=== PATIENT | male | born 1970 | race Caucasian/White ===

== ENCOUNTER 2016-06-15 11:09 | Inpatient (IN) | payer OTHER ==
[2016-06-15 11:09] VITALS: BMI 28.6
[2016-06-15 12:30] LABS: RBC URINE < 1 /hpf (0-3); URINE BILIRUBIN NEGATIVE (NEGATIVE); URINE BLOOD NEGATIVE (NEGATIVE); URINE COLOR Yellow (YELLOW); URINE GLUCOSE (UA) NORMAL (Normal); URINE KETONE NEGATIVE (NEGATIVE); URINE LEUKOCYTE ESTERASE NEG Leu/uL (Negative); URINE PROTEIN NEGATIVE (NEGATIVE); WBC URINE 2 /hpf (0-5)
[2016-06-15] MEDS ORDERED: Iohexol 240 (50 ml) PO STA (12:42)
--- NOTE | 2016-06-15 12:59 | C.PDOC ---
History Of Present Illness 45 y/o male c/o right lower quadrant pain intermittently for 3-4 days. felt febrile with chills the other day. no nausea or vomiting. no diarrhea, last bm today. denies urinary symptoms. pain radiates to groin sometimes, denies any penile discharge, or pain or swelling in scrotum. Time Seen by Provider: 06/15/16 12:04 Chief Complaint (Nursing): Abdominal Pain History Per: Patient History/Exam Limitations: no limitations Onset/Duration Of Symptoms: Days (4) Current Symptoms Are (Timing): Still Present Pain Scale Rating Of: 6 Location Of Pain/Discomfort: RLQ Radiation Of Pain To:: Other (groin) Quality Of Discomfort: Sharp Associated Symptoms: Fever, Chills, Loss Of Appetite. denies: Nausea, Vomiting , Diarrhea Past Medical History Reviewed: Historical Data, Nursing Documentation, Vital Signs Vital Signs: Last Vital Signs Temp 98.8 F 06/15/16 17:02 Pulse 80 06/15/16 17:02 Resp 17 06/15/16 17:02 BP 98/63 L 06/15/16 17:02 Pulse Ox 97 06/15/16 17:27 - Medical History PMH: No Chronic Diseases Surgical History: No Surg Hx Family History: States: Unknown Family Hx - Social History Hx Tobacco Use: No Hx Alcohol Use: Yes Hx Substance Use: No - Immunization History Hx Tetanus Toxoid Vaccination: No Hx Influenza Vaccination: No Hx Pneumococcal Vaccination: No Physical Exam - Physical Exam Appears: Non-toxic, No Acute Distress Skin: Normal Color, Warm, Dry Head: Atraumatic, Normacephalic Chest: Symmetrical, No Deformity, No Tenderness Cardiovascular: Rhythm Regular, No Murmur Respiratory: Normal Breath Sounds, No Rales, No Rhonchi, No Stridor Gastrointestinal/Abdominal: Bowel Sounds, Soft, Tenderness (right upper and right hypogastric tenderness), No Distention, No Guarding, No Rebound Back: Normal Inspection, No CVA Tenderness Neurological/Psych: Oriented x3, Normal Speech, Normal Cognition, Normal Motor, Normal Sensation ED Course And Treatment - Laboratory Results Result Diagrams: 06/15/16 13:15 06/15/16 13:15 O2 Sat by Pulse Oximetry: 97 Medical Decision Making Medical Decision Makin45 y/o male with r/q pain- check ua, labs, ct scan abdomen Disposition Discussed With : Ben Velázquez Doctor Will See Patient In The: Hospital - Disposition Disposition: HOSPITALIZED Disposition Time: 17:28 Condition: STABLE - Clinical Impression Clinical Impression: Ruptured appendix, Abdominal abscess Decision To Admit - Pt Status Changed To: Hospital Disposition Of: Inpatient - Admit Certification Admit to Inpatient:: After my assessment, the patient will require hospitalization for at least two midnights. This is because of the severity of symptoms shown, intensity of services needed, and/or the medical risk in this patient being treated as an outpatient. - InPatient: Physician Admission Certification:: pt requires antibiotics and perhaps to or - . Bed Request Type: Regular Admitting Physician: Ben Velázquez Patient Diagnosis: Ruptured appendix, Abdominal abscess
[2016-06-15] MEDS ORDERED: Iohexol 240 (50 ml) ONE (13:04)
[2016-06-15 13:24] LABS: BASO # 0.1 K/uL (0.0-0.2); BASO % 0.8 % (0.0-2.0); EOS # 0.2 K/uL (0.0-0.7); EOS % 2.2 % (0.0-4.0); HEMATOCRIT 38.3 % (35.0-51.0); LYMPH # 1.8 K/uL (1.0-4.3); LYMPH % 20.3 % (20.0-40.0); MEAN CORPUSCULAR HEMOGLOBIN 31.7 pg (27.0-31.0); MEAN PLATELET VOLUME 10.4 fL (7.2-11.7); MONO # 0.8 K/uL (0.0-0.8); MONO % 9.7 % (0.0-10.0); RED CELL DISTRIBUTION WIDTH 12.7 % (11.5-14.5)
[2016-06-15 13:25] LABS: MEAN CELL VOLUME 95.9 fL (80.0-94.0); WHITE BLOOD COUNT 8.6 K/uL (4.8-10.8)
[2016-06-15 13:30] LABS: CHLORIDE 98 mmol/L (98-107)
[2016-06-15 13:31] LABS: POTASSIUM 4.2 mmol/L (3.6-5.2); SODIUM 141 mmol/L (132-148)
[2016-06-15 13:33] LABS: AST/SGOT 23 U/L (17-59); BILIRUBIN,TOTAL 0.7 mg/dL (0.2-1.3); CARBON DIOXIDE 32 mmol/L (22-30); GFR AFRICAN-AMERICAN > 60
[2016-06-15 13:34] LABS: ALKALINE PHOSPHATASE 63 U/L (38-126); ALT/SGPT 32 U/L (21-72); BLOOD UREA NITROGEN 13 mg/dL (9-20); CALCIUM 9.2 mg/dl (8.6-10.4); GLUCOSE,RANDOM 89 mg/dL (75-110)
[2016-06-15] MEDS ORDERED: Iodixanol 320 MG/ML 100 ML BOTTLE IV ONE (14:46)
--- NOTE | 2016-06-15 15:52 | CT ---
PROCEDURE: CT Abdomen and Pelvis with contrast HISTORY: abd pain COMPARISON: None. TECHNIQUE: Contrast dose: 100 mL Visipaque 320 Radiation dose: Total exam DLP = 642.72 mGy-cm. FINDINGS: LOWER THORAX: Unremarkable. LIVER: Unremarkable. No gross lesion or ductal dilatation. GALLBLADDER AND BILE DUCTS: Unremarkable. PANCREAS: Unremarkable. No gross lesion or ductal dilatation. SPLEEN: Unremarkable. ADRENALS: Unremarkable. No mass. KIDNEYS AND URETERS: Unremarkable. No hydronephrosis. No solid mass. There is cystic lesion exophytic from the midpole right kidney measures 1.4 centimeter VASCULATURE: Unremarkable. No aortic aneurysm. BOWEL: Slightly dilated small bowel loops. No evidence of bowel obstruction. Larger phlegmon seen at or adjacent to the cecum. There is suspicious for abscess formation adjacent to the cecum measures 4 centimeter. There is moderate thickening of the terminal ileum wall. APPENDIX: The appendix is not visualized. Large phlegmon and abscess formation seen at the right lower abdomen at and adjacent to the cecum. The possibility of rupture appendicitis is not totally excluded. PERITONEUM: Unremarkable. No free fluid. No free air. LYMPH NODES: Unremarkable. No enlarged lymph nodes. BLADDER: Unremarkable. REPRODUCTIVE: Unremarkable. BONES: No acute fracture. OTHER FINDINGS: None. IMPRESSION: Large phlegmon and 4 centimeter abscess formation seen at and/or adjacent to the cecum in the right lower abdomen. Findings may represent rupture appendicitis and abscess formation versus cecal perforation/ severe colitis. The possibility of underlying cecal mass is also not totally excluded. Adjacent moderate thickening of the terminal ileum wall likely reactive. Otherwise no evidence of acute pathology in the abdomen and pelvis.
[2016-06-15] MEDS ORDERED: Piperacillin/Tazobact 3.375 GM in Sodium Chloride 100 ML IVPB STA (16:22)
[2016-06-15] MEDS ORDERED: Lactated Ringer's 1,000 ML ONE (17:05)
[2016-06-15] MEDS ORDERED: Piperacillin/Tazobact 3.375 gm 100 ML IVPB ONE (17:05)
--- NOTE | 2016-06-15 17:10 | CP.PCM.HP ---
History of Present Illness - History of Present Illness History of Present Illness: Surgery: Dr. Velázquez CC: RLQ pain HPI: Patient is a 45 y/o male who presents complaining of RLQ abdominal pain that started on Saturday. Patient states the pain started midline around his belly button but progressively got worse and migrated to RLQ. He states on Saturday he developed fever and chills and on Saturday night the pain was so severe it woke him from sleep. He denies taking any medication for the pain just decided to wait for it to pass. The pain initially had improved on Saturday but starting he developed fever and the pain started to return. Patient does not know numerical value of fever. He states his appetite has been poor during his illness and also reports constipation. Bowel function returned on which was normal, no diarrhea or blood. He denies having pain like this in the past. He denies having colonoscopy or endoscopy in the past. PMH: denies PSH: scalp cyst excision Social: denies ETOH, tobacco, or durg use Present on Admission - Present on Admission Any Indicators Present on Admission: No Review of Systems - Review of Systems All systems: reviewed and no additional remarkable complaints except Review of Systems: unless stated in HPI - Constitutional Constitutional: Chills, Fever, Malaise. absent: Anorexia, Increased Appetite, Weight Loss - EENT Eyes: absent: Blurred Vision, Change in Vision - Cardiovascular Cardiovascular: absent: Chest Pain, Dyspnea - Respiratory Respiratory: absent: Cough, Wheezing - Gastrointestinal Gastrointestinal: Abdominal Pain, Constipation. absent: Cramping, Diarrhea, Heartburn, Hematochezia, Nausea, Vomiting - Genitourinary Genitourinary: absent: Hematuria, Pyuria - Musculoskeletal Musculoskeletal: absent: Arthralgias, Back Pain - Integumentary Integumentary: absent: Sores, Jaundice - Neurological Neurological: absent: Headaches, Syncope - Psychiatric Psychiatric: absent: Anxiety, Depression - Endocrine Endocrine: absent: Polydipsia, Polyphagia - Hematologic/Lymphatic Hematologic: absent: Easy Bleeding, Easy Bruising Past Patient History - Infectious Disease Hx of Infectious Diseases: None - Past Medical History & Family History Past Medical History?: No - Past Social History Smoking Status: Never Smoked - INTEGUMENTARY Hx Dermatological Problems: Yes (CYST OF SCALP) - PSYCHIATRIC Hx Substance Use: No - SURGICAL HISTORY Hx Surgeries: No - ANESTHESIA Hx Anesthesia: No Meds Allergies/Adverse Reactions: Allergies Allergy/AdvReac Type Severity Reaction Status Date / Time No Known Allergies Allergy Verified 06/15/16 11:14 Physical Exam - Constitutional Appears: Well, Non-toxic, No Acute Distress - Head Exam Head Exam: ATRAUMATIC, NORMOCEPHALIC - Eye Exam Eye Exam: EOMI, Normal appearance - ENT Exam ENT Exam: Mucous Membranes Moist - Respiratory Exam Respiratory Exam: NORMAL BREATHING PATTERN. absent: Respiratory Distress - Cardiovascular Exam Cardiovascular Exam: REGULAR RHYTHM. absent: Tachycardia - GI/Abdominal Exam GI & Abdominal Exam: Guarding (in the RLQ, voluntary ), Soft, Tenderness (Right lower quadrant ). absent: Distended, Hernia, Rebound - Rectal Exam Rectal Exam: Deferred - Extremities Exam Extremities exam: Positive for: normal inspection. Negative for: calf tenderness - Neurological Exam Neurological exam: Alert, CN II-XII Intact, Oriented x3 - Psychiatric Exam Psychiatric exam: Normal Affect, Normal Mood - Skin Skin Exam: Dry, Intact, Normal Color, Warm Results - Vital Signs Recent Vital Signs: Last Vital Signs Temp 98.8 F 06/15/16 17:02 Pulse 80 06/15/16 17:02 Resp 17 06/15/16 17:02 BP 98/63 L 06/15/16 17:02 Pulse Ox 98 06/15/16 17:02 - Labs Result Diagrams: 06/15/16 13:15 06/15/16 13:15 Assessment & Plan - Assessment and Plan (Free Text) Assessment: 45 y/o male w/ abdominal pain most likely 2/2 perforated appendicitis Plan: -Zosyn IV abx -IVFs -NPO overnight, pending clinical exam may start clears in am -Morphine for pain -Tylenol for fever -am labs -Pepcid/SCDs for prophylaxis -serial exams -conservative management at this time, if clinically patient does not improve or symptoms worsen, may consider surgical intervention -d/w Dr. Eber Alvarez PGY1 - Date & Time Date: 06/15/16 Time: 17:15
[2016-06-15] MEDS: Lactated Ringer's 1,000 ML IV SCH ×2 (17:15→20:56)
[2016-06-15 18:34] LABS: INR 1.3
[2016-06-16 00:27] VITALS: RESP 20
[2016-06-16] MEDS: Lactated Ringer's 1,000 ML IV SCH ×4 (01:00→14:50)
[2016-06-16 07:15] LABS: BASO # 0.1 K/uL (0.0-0.2); BASO % 0.9 % (0.0-2.0); EOS # 0.3 K/uL (0.0-0.7); EOS % 3.3 % (0.0-4.0); LYMPH # 2.2 K/uL (1.0-4.3); MEAN CELL VOLUME 96.2 fL (80.0-94.0); MEAN CORPUSCULAR HEMOGLOBIN 31.7 pg (27.0-31.0); MEAN CORPUSCULAR HGB CONC 32.9 g/dL (33.0-37.0); MEAN PLATELET VOLUME 10.6 fL (7.2-11.7); MONO # 0.8 K/uL (0.0-0.8); MONO % 9.1 % (0.0-10.0); RED CELL DISTRIBUTION WIDTH 12.8 % (11.5-14.5); WHITE BLOOD COUNT 8.7 K/uL (4.8-10.8)
[2016-06-16 07:37] LABS: CHLORIDE 97 mmol/L (98-107); POTASSIUM 4.3 mmol/L (3.6-5.2); SODIUM 141 mmol/L (132-148)
[2016-06-16 07:40] LABS: BLOOD UREA NITROGEN 10 mg/dL (9-20); CARBON DIOXIDE 33 mmol/L (22-30); GFR AFRICAN-AMERICAN > 60; GLUCOSE,RANDOM 90 mg/dL (75-110)
[2016-06-16 07:41] LABS: CALCIUM 8.5 mg/dl (8.6-10.4)
--- NOTE | 2016-06-16 10:28 | CP.PCM.PN ---
Subjective - Date & Time of Evaluation Date of Evaluation: 06/16/16 Time of Evaluation: 10:26 - Subjective Subjective: General Surgery - Dr. Velázquez Pt S&E. LUZ. Pt has mild RLQ discomfort, otherwise no complaints. He is ambulating the halls. Pt requesting to eat. He denies any n/V, F/C, SOB/Cp. Objective - Vital Signs/Intake and Output Vital Signs (last 24 hours): Temp Pulse Resp BP Pulse Ox 98.4 F 66 20 90/56 L 96 06/16/16 00:18 06/16/16 00:18 06/16/16 00:18 06/16/16 00:18 06/16/16 00:18 Intake and Output: 06/16/16 06/16/16 06:59 18:59 Intake Total 200 Balance 200 - Medications Medications: Current Medications Acetaminophen (Tylenol 650 Mg Supp) 650 mg NH Q6 PRN PRN Reason: Fever >100.4 F Famotidine (Pepcid) 20 mg IVP DAILY [facility] Last Admin: 06/16/16 10:16 Dose: 20 mg Lactated Ringer's (Lactated Ringer's) 1,000 mls @ 125 mls/hr IV .Q8H [facility] Last Admin: 06/16/16 05:41 Dose: 125 mls/hr Piperacillin Sod/Tazobactam Sod (Zosyn 2.25 Gm Iv Premix) 50 mls @ 100 mls/hr IVPB Q6H [facility] Morphine Sulfate (Morphine) 2 mg IVP Q4H PRN PRN Reason: Pain, moderate (4-7) Morphine Sulfate (Morphine) 4 mg IVP Q4H PRN PRN Reason: Pain, severe (8-10) Ondansetron HCl (Zofran Inj) 4 mg IVP Q6 PRN PRN Reason: Nausea/Vomiting - Labs Labs: 06/16/16 07:08 06/16/16 07:08 PT 14.9 SECONDS (9.7-12.2) H 06/15/16 18:19 INR 1.3 06/15/16 18:19 APTT 26 SECONDS (21-34) 06/15/16 18:19 - Constitutional Appears: Well, No Acute Distress - Head Exam Head Exam: ATRAUMATIC, NORMOCEPHALIC - Eye Exam Eye Exam: Normal appearance - Respiratory Exam Respiratory Exam: NORMAL BREATHING PATTERN. absent: Respiratory Distress - GI/Abdominal Exam GI & Abdominal Exam: Guarding, Soft, Tenderness (very localized ttp to the rlq) . absent: Distended, Firm, Rigid, Rebound - Neurological Exam Neurological Exam: Alert, Oriented x3 - Psychiatric Exam Psychiatric exam: Normal Affect, Normal Mood - Skin Skin Exam: Dry, Intact Assessment and Plan - Assessment and Plan (Free Text) Assessment: 45yo M w/ perforated appendicitis and phlegmon -Regular diet -Continue IV Abx - Zosyn -No plans for surgical intervention at this time -DW DR Eber Johns PGY2
[2016-06-16] MEDS: Piperacill/Tazo 2.25gm in Dex 50 ML IVPB SCH ×3 (11:00→22:00)
--- NOTE | 2016-06-16 13:02 | RAD ---
PROCEDURE: CHEST RADIOGRAPH, 1 VIEW HISTORY: preop COMPARISON: None available. FINDINGS: LUNGS: Clear. PLEURA: No pneumothorax or pleural fluid seen. CARDIOVASCULAR: Normal. OSSEOUS STRUCTURES: No significant abnormalities. VISUALIZED UPPER ABDOMEN: Normal. OTHER FINDINGS: None. IMPRESSION: No active disease.
[2016-06-17] MEDS: Lactated Ringer's 1,000 ML IV SCH
[2016-06-17 00:29] VITALS: BP 101/65; TEMP 98.3; O2SAT 97
[2016-06-17] MEDS: Piperacill/Tazo 2.25gm in Dex 50 ML IVPB SCH ×2 (04:00→09:47)
[2016-06-17 07:33] LABS: BASO # 0.1 K/uL (0.0-0.2); BASO % 0.9 % (0.0-2.0); EOS # 0.3 K/uL (0.0-0.7); EOS % 3.8 % (0.0-4.0); HEMATOCRIT 35.6 % (35.0-51.0); LYMPH # 1.8 K/uL (1.0-4.3); LYMPH % 26.4 % (20.0-40.0); MEAN CELL VOLUME 96.2 fL (80.0-94.0); MEAN CORPUSCULAR HEMOGLOBIN 31.8 pg (27.0-31.0); MEAN CORPUSCULAR HGB CONC 33.1 g/dL (33.0-37.0); MEAN PLATELET VOLUME 10.2 fL (7.2-11.7); MONO # 0.7 K/uL (0.0-0.8); MONO % 9.5 % (0.0-10.0); RED CELL DISTRIBUTION WIDTH 12.4 % (11.5-14.5); WHITE BLOOD COUNT 6.9 K/uL (4.8-10.8)
[2016-06-17 07:39] LABS: CHLORIDE 98 mmol/L (98-107); POTASSIUM 4.3 mmol/L (3.6-5.2); SODIUM 143 mmol/L (132-148)
[2016-06-17 07:42] LABS: BLOOD UREA NITROGEN 12 mg/dL (9-20); CARBON DIOXIDE 31 mmol/L (22-30); GFR AFRICAN-AMERICAN > 60; GLUCOSE,RANDOM 101 mg/dL (75-110)
[2016-06-17 07:43] LABS: CALCIUM 8.6 mg/dl (8.6-10.4)
[2016-06-17 08:23] VITALS: PULSE 76
--- NOTE | 2016-06-17 13:44 | CP.PCM.DIS ---
Provider - Provider Date of Admission: 06/15/16 16:50 Attending physician: Ben Velázquez MD Time Spent in preparation of Discharge (in minutes): 20 Diagnosis - Discharge Diagnosis (1) Ruptured appendix Status: Acute Hospital Course - Lab Results Lab Results: Most Recent Lab Values WBC 6.9 K/uL (4.8-10.8) 06/17/16 07:09 RBC 3.70 Mil/uL (4.40-5.90) L 06/17/16 07:09 Hgb 11.8 g/dL (12.0-18.0) L 06/17/16 07:09 Hct 35.6 % (35.0-51.0) 06/17/16 07:09 MCV 96.2 fL (80.0-94.0) H 06/17/16 07:09 MCH 31.8 pg (27.0-31.0) H 06/17/16 07:09 MCHC 33.1 g/dL (33.0-37.0) 06/17/16 07:09 RDW 12.4 % (11.5-14.5) 06/17/16 07:09 Plt Count 232 K/uL (130-400) 06/17/16 07:09 MPV 10.2 fL (7.2-11.7) 06/17/16 07:09 Neut % (Auto) 59.4 % (50.0-75.0) 06/17/16 07:09 Lymph % (Auto) 26.4 % (20.0-40.0) 06/17/16 07:09 [place] % (Auto) 9.5 % (0.0-10.0) 06/17/16 07:09 Eos % (Auto) 3.8 % (0.0-4.0) 06/17/16 07:09 Baso % (Auto) 0.9 % (0.0-2.0) 06/17/16 07:09 Neut # 4.1 K/uL (1.8-7.0) 06/17/16 07:09 Lymph # 1.8 K/uL (1.0-4.3) 06/17/16 07:09 [place] # 0.7 K/uL (0.0-0.8) 06/17/16 07:09 Eos # 0.3 K/uL (0.0-0.7) 06/17/16 07:09 Baso # 0.1 K/uL (0.0-0.2) 06/17/16 07:09 PT 14.9 SECONDS (9.7-12.2) H 06/15/16 18:19 INR 1.3 06/15/16 18:19 APTT 26 SECONDS (21-34) 06/15/16 18:19 Sodium 143 mmol/L (132-148) 06/17/16 07:09 Potassium 4.3 mmol/L (3.6-5.2) 06/17/16 07:09 Chloride 98 mmol/L (98-107) 06/17/16 07:09 Carbon Dioxide 31 mmol/L (22-30) H 06/17/16 07:09 Anion Gap 18 (10-20) 06/17/16 07:09 BUN 12 mg/dL (9-20) 06/17/16 07:09 Creatinine 1.0 MG/DL (0.8-1.5) 06/17/16 07:09 Est GFR ( Amer) > 60 06/17/16 07:09 Est GFR (Non-Af Amer) > 60 06/17/16 07:09 Random Glucose 101 mg/dL (75-110) 06/17/16 07:09 Calcium 8.6 mg/dl (8.6-10.4) 06/17/16 07:09 Total Bilirubin 0.7 mg/dL (0.2-1.3) 06/15/16 13:15 AST 23 U/L (17-59) 06/15/16 13:15 ALT 32 U/L (21-72) 06/15/16 13:15 Alkaline Phosphatase 63 U/L (38-126) 06/15/16 13:15 Total Protein 8.0 g/dL (6.3-8.3) 06/15/16 13:15 Albumin 4.0 g/dL (3.5-5.0) 06/15/16 13:15 Globulin 4.0 gm/dL (2.2-3.9) H 06/15/16 13:15 Albumin/Globulin Ratio 1.0 (1.0-2.1) 06/15/16 13:15 Lipase 51 U/L (23-300) 06/15/16 13:15 Urine Color Yellow (YELLOW) 06/15/16 12:24 Urine Clarity Clear (Clear) 06/15/16 12:24 Urine pH 7.0 (5.0-8.0) 06/15/16 12:24 Ur Specific [place] 1.019 (1.003-1.030) 06/15/16 12:24 Urine Protein Negative mg/dL (NEGATIVE) 06/15/16 12:24 Urine Glucose (UA) Normal mg/dL (Normal) 06/15/16 12:24 Urine Ketones Negative mg/dL (NEGATIVE) 06/15/16 12:24 Urine Blood Negative (NEGATIVE) 06/15/16 12:24 Urine Nitrate Negative (NEGATIVE) 06/15/16 12:24 Urine Bilirubin Negative (NEGATIVE) 06/15/16 12:24 Urine Urobilinogen 4.0 mg/dL (0.2-1.0) 06/15/16 12:24 Ur Leukocyte Esterase Neg Annie/uL (Negative) 06/15/16 12:24 Urine WBC (Auto) 2 /hpf (0-5) 06/15/16 12:24 Urine RBC (Auto) < 1 /hpf (0-3) 06/15/16 12:24 Blood Type O POSITIVE 06/15/16 18:19 Antibody Screen Negative 06/15/16 18:19 - Hospital Course Hospital Course: 45M presented to ED with abdominal pain and was found to have a phlegmon in the RLQ with no appendix seen. He was treated with IV Abx and improved over the next 2 days so he was able to be discharged with PO abx. Discharge Exam - Head Exam Head Exam: ATRAUMATIC, NORMOCEPHALIC - Eye Exam Eye Exam: EOMI. absent: Scleral icterus - Respiratory Exam Respiratory Exam: NORMAL BREATHING PATTERN. absent: Accessory Muscle Use, Respiratory Distress - GI/Abdominal Exam GI & Abdominal Exam: Soft, Tenderness (trace on deep palpation of RLQ). absent : Distended, Firm, Guarding, Rigid - Neurological Exam Neurological exam: Alert, Oriented x3 - Skin Skin Exam: Dry, Warm Discharge Plan - Discharge Medications Prescriptions: Amoxicillin/Clavulanate [Augmentin 875 MG-125 MG] 1 tab PO BID #10 tab - Follow Up Plan Condition: STABLE Disposition: HOME/ ROUTINE Instructions: Abscess (GEN) Additional Instructions: Regular Diet Follow up in 1-[address] Velázquez Continue abx as per Rx. Call for fever more than 101 or pain uncontrolled by tylenol or aspirin.
== END 2016-06-17 15:10 | disposition home or self-care (01) | DRG 895 ==
LOC: C.ER 11:09 → C.9E 16:50 → C.6T 17:59
PROVIDERS: ADMIT Specialist; ATTEND Specialist
DX: K65.1 Peritoneal abscess (principal)